=== PATIENT | male | born 1950 | race Caucasian/White ===

== ENCOUNTER 2018-07-05 13:11 | Emergency (ER) | payer OTHER ==
[~2018-07-05] VITALS: Ht 170.2 cm; Wt 77.1 kg
[2018-07-05 13:24] VITALS: BP_SYST 101
[2018-07-05] MEDS ORDERED: NACL 0.9% 1,000 ML IV ONE (13:49)
[2018-07-05 14:22] LABS: BASOPHILS % (AUTO) 0.4 % (0.0-2.0); EOSINOPHILS % (AUTO) 0.2 % (0.0-4.0); HEMATOCRIT 30.5 % (36-54); HEMOGLOBIN 10.2 g/dL (14.0-18.0); LYMPHOCYTES # (AUTO) 1.6 K/uL (1.0-5.5); LYMPHOCYTES % (AUTO) 26.3 % (20.5-51.5); MEAN CORPUSCULAR HEMOGLOBIN 28 pg (27-31); MEAN CORPUSCULAR HGB CONC 34 % (32-36); MEAN CORPUSCULAR VOLUME 85 fL (79.0-98.0); MONOCYTES # (AUTO) 0.1 K/uL (0.0-1.0); MONOCYTES % (AUTO) 1.5 % (1.7-9.3); NEUTROPHILS # (AUTO) 4.4 K/uL (1.8-7.7); NEUTROPHILS % (AUTO) 71.6 % (40.0-70.0); PLATELET COUNT (AUTO) 120 K/uL (130-430); RED BLOOD CELL COUNT(AUTO) 3.61 MIL/uL (4.2-6.2); RED CELL DISTRIBUTION WIDTH 16.7 % (9.0-15.0); WHITE BLOOD COUNT (AUTO) 6.1 K/uL (4.8-10.8)
[2018-07-05 14:36] LABS: CALCIUM 8.5 mg/dL (8.4-11.0); CREATININE 0.69 mg/dL (0.55-1.30); POTASSIUM 4.1 mmol/L (3.5-5.1)
[2018-07-05 14:38] LABS: INR 1.1 (0.80-1.20); PROTHROMBIN TIME 11.4 SECS (9.5-12.5)
[2018-07-05 14:42] LABS: ALBUMIN 2.4 g/dL (3.4-4.8); TOTAL BILIRUBIN 1.1 mg/dL (0.0-1.0)
[2018-07-05 17:00] VITALS: BP_SYST 116
== END 2018-07-05 17:00 | disposition home or self-care (01) ==
LOC: SED 13:11
DX: C25.9 Malignant neoplasm of pancreas, unspecified (principal); M85.88 Other specified disorders of bone density and structure, other site; D64.9 Anemia, unspecified; E11.9 Type 2 diabetes mellitus without complications; E78.00 Pure hypercholesterolemia, unspecified; M10.9 Gout, unspecified
CPT/HCPCS: 36415; 74176; 80053; 83605; 83690; 85025; 85610; 87040; 99285; J7030